=== PATIENT | female | born 1970 | race American Indian/Alaskan Native ===

== ENCOUNTER 2020-11-21 13:22 | Emergency (ER) | payer OTHER ==
[2020-11-21 17:08] VITALS: BP 208/113
--- NOTE | 2020-11-21 17:08 | Emergency Department Report ---
- General Chief Complaint: Upper Respiratory Infection Stated Complaint: COUGH/CHILLS Time Seen by Provider: 11/21/20 17:00 Source: patient Mode of arrival: Ambulatory Limitations: No Limitations - History of Present Illness Initial Comments: Patient is a 50-year-old female presents emergency room with complaints of a productive cough that began a week ago. She states that she has associated brown sputum production. Patient states that she has been having generalized weakness, fatigue, chills. She states that she has back pain upon coughing. She denies any nausea, vomiting, diarrhea, urinary symptoms, chest pain, shortness of breath, abdominal pain. She has not been vaccinated for COVID-19. She states that she got Covid 19 testing yesterday and is awaiting her results. She denies any known sick contacts or recent travel. She states that she is a former smoker and has not smoked in 30 years. Past medical history of hypertension and she states she supposed to be taking amlodipine but has not taken in 1 year. No allergies to medicines. - Related Data Previous Rx's Medication Instructions Recorded Last Taken Type Ferrous Sulfate [Iron 325 MG] 325 mg PO QDAY #30 tablet 01/22/17 Unknown Rx amLODIPine 5 mg PO DAILY #30 tab 01/22/17 Unknown Rx Azithromycin [Zithromax TAB] 250 mg PO QDAY 5 Days #6 tablet 11/21/20 Unknown Rx Benzonatate [Tessalon Perles] 100 mg PO Q8HR PRN #12 capsule 11/21/20 Unknown Rx Prednisone [predniSONE 10 mg 10 mg PO .TAPER #1 tab.ds.pk 11/21/20 Unknown Rx (6-Day Pack, 21 Tabs)] amLODIPine 10 mg PO DAILY #30 tab 11/21/20 Unknown Rx guaiFENesin/DEXTROMETHORPHAN 1 each PO Q6HR PRN #20 capsule 11/21/20 Unknown Rx [Coricidin Hbp Chest Deangelo-Cough] Allergies Allergy/AdvReac Type Severity Reaction Status Date / Time No Known Allergies Allergy Verified 11/21/20 15:58 ED Review of Systems ROS: Stated complaint: COUGH/CHILLS Other details as noted in HPI Comment: All other systems reviewed and negative ED Past Medical Hx - Past Medical History Hx Hypertension: Yes - Surgical History Hx Cholecystectomy: Yes - Social History Smoking Status: Never Smoker Substance Use Type: None - Medications Home Medications: Home Medications Medication Instructions Recorded Confirmed Last Taken Type Ferrous Sulfate [Iron 325 MG] 325 mg PO QDAY #30 tablet 01/22/17 Unknown Rx amLODIPine 5 mg PO DAILY #30 tab 01/22/17 Unknown Rx Azithromycin [Zithromax TAB] 250 mg PO QDAY 5 Days #6 tablet 11/21/20 Unknown Rx Benzonatate [Tessalon Perles] 100 mg PO Q8HR PRN #12 capsule 11/21/20 Unknown Rx Prednisone [predniSONE 10 mg 10 mg PO .TAPER #1 tab.ds.pk 11/21/20 Unknown Rx (6-Day Pack, 21 Tabs)] amLODIPine 10 mg PO DAILY #30 tab 11/21/20 Unknown Rx guaiFENesin/DEXTROMETHORPHAN 1 each PO Q6HR PRN #20 capsule 11/21/20 Unknown Rx [Coricidin Hbp Chest Deangelo-Cough] ED Physical Exam - General Limitations: No Limitations General appearance: alert, in no apparent distress - Head Head exam: Present: atraumatic, normocephalic - Eye Eye exam: Present: normal appearance - ENT ENT exam: Present: mucous membranes moist - Respiratory Respiratory exam: Present: rhonchi (right lower), decreased breath sounds (right lower). Absent: respiratory distress, wheezes, rales, stridor, chest wall tenderness, accessory muscle use, prolonged expiratory - Cardiovascular Cardiovascular Exam: Present: regular rate, normal rhythm, normal heart sounds. Absent: systolic murmur, diastolic murmur, rubs, gallop - Neurological Exam Neurological exam: Present: alert, oriented X3 - Psychiatric Psychiatric exam: Present: normal affect, normal mood - Skin Skin exam: Present: warm, dry, intact ED Course Vital Signs 11/21/20 11/21/20 15:57 17:07 Temperature 97.4 F L Pulse Rate 67 77 Respiratory 20 Rate Blood Pressure 252/128 208/113 [Left] O2 Sat by Pulse 100 100 Oximetry ED Medical Decision Making - Lab Data Vital Signs 11/21/20 11/21/20 15:57 17:07 Temperature 97.4 F L Pulse Rate 67 77 Respiratory 20 Rate Blood Pressure 252/128 208/113 [Left] O2 Sat by Pulse 100 100 Oximetry - Radiology Data Radiology results: report reviewed Ordering Physician: GUILLE JARVIS Date of Service: 11/21/20 Procedure(s): XR chest routine 2V Accession Number(s): [id number] cc: GUILLE JARVIS Fluoro Time In Minutes: XR chest routine 2V INDICATION / CLINICAL INFORMATION: productive cough. COMPARISON: None available. FINDINGS: SUPPORT DEVICES: None. HEART /PULMONARY VASCULATURE: No significant abnormality. LUNGS / PLEURA: No significant pulmonary or pleural abnormality. No pneumothorax. ADDITIONAL FINDINGS: No significant additional findings. IMPRESSION: 1. No acute findings. Signer Name: Katarina Pond MD Signed: 11/21/2020 5:23 PM Workstation Name: [id number] Transcribed By: RISSA Dictated By: KATARINA POND MD Electronically Authenticated By: KATARINA POND MD Signed Date/Time: 11/21/201722 DD/ 22 TD/TT: - Medical Decision Making Patient is a 50-year-old female presents emergency room with complaints of a productive cough that began a week ago. She states that she has associated brown sputum production. Patient states that she has been having generalized we akness, fatigue, chills. She states that she has back pain upon coughing. She denies any nausea, vomiting, diarrhea, urinary symptoms, chest pain, shortness of breath, abdominal pain. She has not been vaccinated for COVID-19. She states that she got Covid 19 testing yesterday and is awaiting her results. She denies any known sick contacts or recent travel. She states that she is a former smoker and has not smoked in 30 years. Past medical history of hypertension and she states she supposed to be taking amlodipine but has not taken in 1 year. No allergies to medicines. Vitals with significantly elevated blood pressure which improved upon repeat without intervention, patient has known history of hypertension and has not taken her medication in 1 year or seen her primary care doctor, patient will be given a refill of her medication, the up-to-date medical literature does not recommend emergently lowering asymptomatic elevated blood pressure. On exam patient has right-sided rhonchi with slightly decreased breath sounds, no respiratory distress, no excessive muscle use, no rales, no stridor. Chest x-ray: 1. No acute findings. Patient will be treated for acute bronchitis. Advised patient Please take medication as prescribed. Increase your fluid intake. Follow-up with a primary care doctor. Please take your blood pressure medication as prescribed. Eat a low-sodium diet. Incorporate 30 to 60 minutes daily exercise. Return to emergency room for any new or worsening symptoms. Advised patient to continue to self quarantine for 10 days from onset of symptoms. Critical care attestation.: If time is entered above; I have spent that time in minutes in the direct care of this critically ill patient, excluding procedure time. ED Disposition Clinical Impression: Acute bronchitis Qualifiers: Bronchitis organism: unspecified organism Qualified Code(s): J20.9 - Acute bronchitis, unspecified Disposition: HOME / SELF CARE / HOMELESS Is pt being admited?: No Does the pt Need Aspirin: No Condition: Stable Instructions: Acute Bronchitis, Adult, Acute Bronchitis (ED) Additional Instructions: Please take medication as prescribed. Increase your fluid intake. Follow-up with a primary care doctor. Please take your blood pressure medication as prescribed. Eat a low-sodium diet. Incorporate 30 to 60 minutes daily exercise. Return to emergency room for any new or worsening symptoms. Prescriptions: amLODIPine 10 mg PO DAILY #30 tab guaiFENesin/DEXTROMETHORPHAN [Coricidin Hbp Chest Deangelo-Cough] 1 each PO Q6HR PRN #20 capsule PRN Reason: cough/congestion Prednisone [predniSONE 10 mg (6-Day Pack, 21 Tabs)] 10 mg PO .TAPER #1 tab.ds.pk Benzonatate [Tessalon Perles] 100 mg PO Q8HR PRN #12 capsule PRN Reason: cough Azithromycin [Zithromax TAB] 250 mg PO QDAY 5 Days #6 tablet Referrals: LUCIE SHELL MD [Primary Care Provider] - 2-3 Days HUY PELLETIER MD [Staff Physician] - 2-3 Days [facility] [Provider Group] - 2-3 Days Time of Disposition: 17:38 Print Language: UPPER SORBIAN
--- NOTE | 2020-11-21 17:27 | XRay Report ---
XR chest routine 2V INDICATION / CLINICAL INFORMATION: productive cough. COMPARISON: None available. FINDINGS: SUPPORT DEVICES: None. HEART /PULMONARY VASCULATURE: No significant abnormality. LUNGS / PLEURA: No significant pulmonary or pleural abnormality. No pneumothorax. ADDITIONAL FINDINGS: No significant additional findings. IMPRESSION: 1. No acute findings. Signer Name: Jigar Pond MD Signed: 11/21/2020 5:23 PM Workstation Name: [id number]
== END 2020-11-21 17:58 | disposition home or self-care (01) ==
LOC: ED 13:22
DX: J20.9 Acute bronchitis, unspecified (principal); I10 Essential (primary) hypertension; Z79.899 Other long term (current) drug therapy; Z90.49 Acquired absence of other specified parts of digestive tract
CPT/HCPCS: 71046; 99283

== ENCOUNTER 2021-04-11 11:40 | Emergency (ER) | payer SELFPAY ==
[2021-04-11] MEDS ORDERED: diphenhydrAMINE 50 MG/ML VIAL IV ONE (13:36)
[2021-04-11] MEDS ORDERED: FAMOTIDINE 20 MG/2 ML INJ IV ONE (13:36)
[2021-04-11] MEDS ORDERED: METOCLOPRAMIDE 10 MG/2 ML INJ IV ONE (13:36)
[2021-04-11] MEDS ORDERED: DICYCLOMINE 20 MG TAB PO ONE (13:36)
[2021-04-11] MEDS ORDERED: SODIUM CHLORIDE 0.9% 1000 ML 1,000 ML IV ONE (13:36)
[2021-04-11 14:05] LABS: Basophils % (Auto) 0.4 % (0.0-1.8); Eosinophils # (Auto) 0.1 K/mm3 (0.0-0.4); Eosinophils % (Auto) 1.9 % (0.0-4.3); Hematocrit 44.5 % (30.3-42.9); Hemoglobin 14.4 gm/dl (10.1-14.3); Lymphocytes # (Auto) 2.6 K/mm3 (1.2-5.4); Lymphocytes % (Auto) 39.7 % (13.4-35.0); Mean Corpuscular HGB Conc 32 % (30-34); Mean Corpuscular Volume 86 fl (79-97); Monocytes # (Auto) 0.6 K/mm3 (0.0-0.8); Monocytes % (Auto) 8.8 % (0.0-7.3); Platelet Count 234 K/mm3 (140-440); Red Blood Count 5.19 M/mm3 (3.65-5.03); Red Cell Distribution Width 13.9 % (13.2-15.2)
[2021-04-11 14:23] LABS: Alanine Aminotransferase 18 units/L (7-56); Albumin 4.2 g/dL (3.9-5); BUN/Creatinine Ratio 19; Blood Urea Nitrogen 15 mg/dL (7-17); Calcium 9.6 mg/dL (8.4-10.2); Hemolysis Index 6
[2021-04-11 16:04] LABS: Bilirubin,Urine NEG (Negative); Blood,Urine NEG (Negative); Color,Urine Yellow (Yellow); Mucus,Urine 3+ /HPF; Urobilinogen,Urine < 2.0 mg/dL (<2.0)
--- NOTE | 2021-04-11 16:04 | Emergency Department Report ---
ED Abdominal Pain HPI - General Chief Complaint: Abdominal Pain Stated Complaint: ABD PAIN Time Seen by Provider: 04/11/21 13:13 Source: patient Mode of arrival: Ambulatory Limitations: No Limitations - History of Present Illness Initial Comments: This is a 51-year-old female nontoxic, well nourished in appearance, no acute signs of distress presents to the ED with c/o of nausea and vomiting and abdominal pain several days. Patient describes vomiting as food content and yellow gastric acid. Patient describes abdominal pain as cramping and aching with level of 8/10 to RUQ with radiation to right flank. Patient has history of cholecystectomy. Patient denies chest pain, short of breath, fever, hemoptysis, blood in stool, chills, headache, stiff neck, numbness or tingling. Patient denies any diarrhea or constipation. Denies any blood in stool. Patient denies any recent travels. Patient denies any drug allergies. Patient denies any al cohol or illegal drug consumption. MD Complaint: abdominal pain -: days(s) Location: RUQ Radiation: R flank Migration to: no migration Severity: mild Severity scale (0 -10): 8 Quality: cramping, aching Consistency: constant Improves With: nothing Worsens With: nothing Associated Symptoms: nausea, vomiting. denies: diarrhea, fever, chills, constipation, dysuria, hematemesis, hematochezia, melena, hematuria, anorexia, syncope - Related Data Previous Rx's Medication Instructions Recorded Last Taken Type Ferrous Sulfate [Iron 325 MG] 325 mg PO QDAY #30 tablet 01/22/17 Unknown Rx amLODIPine 5 mg PO DAILY #30 tab 01/22/17 Unknown Rx Azithromycin [Zithromax TAB] 250 mg PO QDAY 5 Days #6 tablet 11/21/20 Unknown Rx Benzonatate [Tessalon Perles] 100 mg PO Q8HR PRN #12 capsule 11/21/20 Unknown Rx Prednisone [predniSONE 10 mg 10 mg PO .TAPER #1 tab.ds.pk 11/21/20 Unknown Rx (6-Day Pack, 21 Tabs)] amLODIPine 10 mg PO DAILY #30 tab 11/21/20 Unknown Rx guaiFENesin/DEXTROMETHORPHAN 1 each PO Q6HR PRN #20 capsule 11/21/20 Unknown Rx [Coricidin Hbp Chest Deangelo-Cough] Ciprofloxacin HCl 500 mg PO Q12H #14 tab 04/11/21 Unknown Rx Ondansetron [Zofran Odt] 4 mg PO Q8HR PRN #12 tab.rapdis 04/11/21 Unknown Rx metroNIDAZOLE [Flagyl] 500 mg PO Q12HR #14 tab 04/11/21 Unknown Rx Allergies Allergy/AdvReac Type Severity Reaction Status Date / Time No Known Allergies Allergy Verified 11/21/20 15:58 ED Review of Systems ROS: Stated complaint: ABD PAIN Other details as noted in HPI Comment: All other systems reviewed and negative Constitutional: denies: chills, fever Eyes: denies: eye pain, eye discharge, vision change ENT: denies: ear pain, throat pain Respiratory: denies: cough, shortness of breath, wheezing Cardiovascular: denies: chest pain, palpitations Endocrine: no symptoms reported Gastrointestinal: abdominal pain, nausea, vomiting. denies: diarrhea, constipation, hematemesis, melena, hematochezia Genitourinary: denies: urgency, dysuria, discharge Musculoskeletal: denies: back pain, joint swelling, arthralgia Skin: denies: rash, lesions Neurological: denies: headache, weakness, paresthesias Psychiatric: denies: anxiety, depression Hematological/Lymphatic: denies: easy bleeding, easy bruising ED Past Medical Hx - Past Medical History Previous Medical History?: Yes Hx Hypertension: Yes - Surgical History Hx Cholecystectomy: Yes - Social History Smoking Status: Never Smoker Substance Use Type: None - Medications Home Medications: Home Medications Medication Instructions Recorded Confirmed Last Taken Type Ferrous Sulfate [Iron 325 MG] 325 mg PO QDAY #30 tablet 01/22/17 Unknown Rx amLODIPine 5 mg PO DAILY #30 tab 01/22/17 Unknown Rx Azithromycin [Zithromax TAB] 250 mg PO QDAY 5 Days #6 tablet 11/21/20 Unknown Rx Benzonatate [Tessalon Perles] 100 mg PO Q8HR PRN #12 capsule 11/21/20 Unknown Rx Prednisone [predniSONE 10 mg 10 mg PO .TAPER #1 tab.ds.pk 11/21/20 Unknown Rx (6-Day Pack, 21 Tabs)] amLODIPine 10 mg PO DAILY #30 tab 11/21/20 Unknown Rx guaiFENesin/DEXTROMETHORPHAN 1 each PO Q6HR PRN #20 capsule 11/21/20 Unknown Rx [Coricidin Hbp Chest Deangelo-Cough] Ciprofloxacin HCl 500 mg PO Q12H #14 tab 04/11/21 Unknown Rx Ondansetron [Zofran Odt] 4 mg PO Q8HR PRN #12 tab.rapdis 04/11/21 Unknown Rx metroNIDAZOLE [Flagyl] 500 mg PO Q12HR #14 tab 04/11/21 Unknown Rx ED Physical Exam - General Limitations: No Limitations General appearance: alert, in no apparent distress - Head Head exam: Present: atraumatic, normocephalic - Eye Eye exam: Present: normal appearance - Neck Neck exam: Present: normal inspection, full ROM. Absent: lymphadenopathy - Respiratory Respiratory exam: Present: normal lung sounds bilaterally. Absent: respiratory distress, wheezes, rales, rhonchi, stridor, chest wall tenderness, accessory muscle use, decreased breath sounds, prolonged expiratory - Cardiovascular Cardiovascular Exam: Present: regular rate, normal rhythm, normal heart sounds. Absent: bradycardia, tachycardia, irregular rhythm, systolic murmur, diastolic murmur, rubs, gallop - GI/Abdominal GI/Abdominal exam: Present: soft, tenderness (RUQ), normal bowel sounds. Absent: distended, guarding, rebound, rigid, diminished bowel sounds - Extremities Exam Extremities exam: Present: full ROM - Back Exam Back exam: Present: normal inspection, full ROM. Absent: tenderness, CVA tender ness (R), CVA tenderness (L), muscle spasm, paraspinal tenderness, vertebral tenderness, rash noted - Neurological Exam Neurological exam: Present: alert, oriented X3, normal gait - Psychiatric Psychiatric exam: Present: normal affect, normal mood - Skin Skin exam: Present: warm, dry, intact, normal color. Absent: rash ED Course Vital Signs 04/11/21 11:45 Temperature 98 F Pulse Rate 84 Respiratory 16 Rate Blood Pressure 143/89 [Right] O2 Sat by Pulse 98 Oximetry - Reevaluation(s) Reevaluation #1: 04/11/21 16:03 Patient is speaking in full sentences with no signs of distress noted. - Consultations Consultation #1: 04/11/21 16:33 Patient has been consulted with Patricia Del Valle about patient history, physical exam, and labs/imaging results and agrees to the ED plan of care and discharged follow-up with treatment. ED Medical Decision Making - Lab Data Result diagrams: 04/11/21 13:28 04/11/21 13:28 Lab Results 04/11/21 04/11/21 04/11/21 Range/Units 13:28 13:28 Unknown WBC 6.6 (4.5-11.0) K/mm3 RBC 5.19 H (3.65-5.03) M/mm3 Hgb 14.4 H (10.1-14.3) gm/dl Hct 44.5 H (30.3-42.9) % MCV 86 (79-97) fl MCH 28 (28-32) pg MCHC 32 (30-34) % RDW 13.9 (13.2-15.2) % Plt Count 234 (140-440) K/mm3 Lymph % (Auto) 39.7 H (13.4-35.0) % [place] % (Auto) 8.8 H (0.0-7.3) % Eos % (Auto) 1.9 (0.0-4.3) % Baso % (Auto) 0.4 (0.0-1.8) % Lymph # (Auto) 2.6 (1.2-5.4) K/mm3 [place] # (Auto) 0.6 (0.0-0.8) K/mm3 Eos # (Auto) 0.1 (0.0-0.4) K/mm3 Baso # (Auto) 0.0 (0.0-0.1) K/mm3 Seg Neutrophils % 49.2 (40.0-70.0) % Seg Neutrophils # 3.3 (1.8-7.7) K/mm3 Sodium 140 (137-145) mmol/L Potassium 3.9 (3.6-5.0) mmol/L Chloride 103.0 (98-107) mmol/L Carbon Dioxide 28 (22-30) mmol/L Anion Gap 13 mmol/L BUN 15 (7-17) mg/dL Creatinine 0.8 (0.6-1.2) mg/dL Estimated GFR > 60 ml/min BUN/Creatinine Ratio 19 % Glucose 82 (65-100) mg/dL Calcium 9.6 (8.4-10.2) mg/dL Total Bilirubin 0.20 (0.1-1.2) mg/dL AST 16 (5-40) units/L ALT 18 (7-56) units/L Alkaline Phosphatase 72 (35-129) units/L Total Protein 7.4 (6.3-8.2) g/dL Albumin 4.2 (3.9-5) g/dL Albumin/Globulin Ratio 1.3 % Lipase 139 H (13-60) units/L Urine Color Yellow (Yellow) Urine Turbidity Hazy (Clear) Urine pH 5.0 (5.0-7.0) Ur Specific [place] 1.024 (1.003-1.030) Urine Protein 30 mg/dl (Negative) mg/dL Urine Glucose (UA) Neg (Negative) mg/dL Urine Ketones Neg (Negative) mg/dL Urine Blood Neg (Negative) Urine Nitrite Neg (Negative) Urine Bilirubin Neg (Negative) Urine Urobilinogen < 2.0 (<2.0) mg/dL Ur Leukocyte Esterase Neg (Negative) Urine WBC (Auto) 2.0 (0.0-6.0) /HPF Urine RBC (Auto) 1.0 (0.0-6.0) /HPF U Epithel Cells (Auto) 8.0 (0-13.0) /HPF Urine Mucus 3+ /HPF - Radiology Data CT abdomen pelvis w con INDICATION / CLINICAL INFORMATION: abd pain 100 ML OMNI 300 . TECHNIQUE: Axial CT images were obtained through the abdomen and pelvis after 100 cc of Omnipaque [address] scans at this location are performed using CT dose reduction for ALARA by means of automated exposure control. COMPARISON: None available. FINDINGS: LOWER CHEST: 7 mm nodule along the medial aspect of the right middle lobe may be calcified. No acute airspace disease in the lung bases. LIVER: No significant abnormality GALLBLADDER/BILIARY TREE: Cholecystectomy. PANCREAS: There is mild peripancreatic inflammatory stranding involving the pancreatic head. No peripancreatic collection. SPLEEN: No significant abnormality ADRENALS: No significant abnormality KIDNEYS / URETER: No significant abnormality URINARY BLADDER: Bladder is partially decompressed, though grossly unremarkable. REPRODUCTIVE ORGANS: Fibroid uterus. No suspicious adnexal mass. STOMACH / BOWEL: Small bowel is normal in caliber. The colon is unremarkable. No evidence of appendicitis. LYMPH NODES: No significant adenopathy. VASCULATURE: No significant abnormality. OTHER: No free air, free fluid, or focal fluid collection is identified. SKELETAL SYSTEM: Degenerative changes of the spine. No acute osseous findings. IMPRESSION: 1. Mild inflammatory stranding about the pancreatic head, suspicious for acute inte rstitial edematous pancreatitis. No peripancreatic collection. 2. No other acute findings of the abdomen or pelvis. 3. 7 mm pulmonary nodule in the right middle lobe. This is possibly calcified. However, as a conservative measure, recommend follow-up noncontrast CT of the chest in 6-12 months. - Medical Decision Making This is a 51-year-old female that presents with acute pericarditis n. Patient is stable and was examined by me. Negative signs of symptoms of appendicitis. Patient received Flagyl and levofloxacin IV and will be discharged with Cipro and Flagyl. Labs obtained. UA obtained. CT of abdomen obtained and dictated by the radiologist. Patient is notified of the report with no questions noted by the patient. Vital signs are stable prior to discharge. Patient received medical treatment in the ED which patient stated symptoms has resovled and subsided. Was instructed note to operate any machinery due to possible drowsiness and stated someone will drive the patient home. A by mouth challenge has been obtained and patient tolerated well with no nausea vomiting. 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 At time of discharge, the patient does not seem toxic or ill in appearance. No acute signs of distress noted. Patient agrees to discharge treatment plan of care. No further questions noted by the patient. Critical care attestation.: If time is entered above; I have spent that time in minutes in the direct care of this critically ill patient, excluding procedure time. ED Disposition Clinical Impression: Acute pancreatitis Qualifiers: Pancreatitis type: unspecified pancreatitis type Acute pancreatitis complication: unspecified Qualified Code(s): K85.90 - Acute pancreatitis without necrosis or infection, unspecified Disposition: 01 HOME / SELF CARE / HOMELESS Is pt being admited?: No Does the pt Need Aspirin: No Condition: Stable Instructions: Abdominal Pain (ED), Acute Pancreatitis, [id number] Additional Instructions: Follow-up with a primary care doctor in 3-5 days or if symptoms worsen and continue return to emergency room as soon as possible. Prescriptions: Ciprofloxacin HCl 500 mg PO Q12H #14 tab metroNIDAZOLE [Flagyl] 500 mg PO Q12HR #14 tab Ondansetron [Zofran Odt] 4 mg PO Q8HR PRN #12 tab.rapdis PRN Reason: Nausea Referrals: PRIMARY CAREMD [Primary Care Provider] - 3-5 Days HUY PELLETIER MD [Staff Physician] - 3-5 Days [facility] [Provider Group] - 3-5 Days Forms: Work/School Release Form(ED) Time of Disposition: 16:36
--- NOTE | 2021-04-11 16:30 | Cat Scan Report ---
CT abdomen pelvis w con INDICATION / CLINICAL INFORMATION: abd pain 100 ML OMNI 300 . TECHNIQUE: Axial CT images were obtained through the abdomen and pelvis after 100 cc of Omnipaque [address] scans at this location are performed using CT dose reduction for ALARA by means of automated exposure control. COMPARISON: None available. FINDINGS: LOWER CHEST: 7 mm nodule along the medial aspect of the right middle lobe may be calcified. No acute airspace disease in the lung bases. LIVER: No significant abnormality GALLBLADDER/BILIARY TREE: Cholecystectomy. PANCREAS: There is mild peripancreatic inflammatory stranding involving the pancreatic head. No perip ancreatic collection. SPLEEN: No significant abnormality ADRENALS: No significant abnormality KIDNEYS / URETER: No significant abnormality URINARY BLADDER: Bladder is partially decompressed, though grossly unremarkable. REPRODUCTIVE ORGANS: Fibroid uterus. No suspicious adnexal mass. STOMACH / BOWEL: Small bowel is normal in caliber. The colon is unremarkable. No evidence of appendic itis. LYMPH NODES: No significant adenopathy. VASCULATURE: No significant abnormality. OTHER: No free air, free fluid, or focal fluid collection is identified. SKELETAL SYSTEM: Degenerative changes of the spine. No acute osseous findings. IMPRESSION: 1. Mild inflammatory stranding about the pancreatic head, suspicious for acute interstitial edematous pancreatitis. No peripancreatic collection. 2. No other acute findings of the abdomen or pelvis. 3. 7 mm pulmonary nodule in the right middle lobe. This is possibly calcified. However, as a conserva tive measure, recommend follow-up noncontrast CT of the chest in 6-12 months. Signer Name: Jigar Pond MD Signed: 04/11/2021 4:26 PM Workstation Name: [id number]
[2021-04-11] MEDS ORDERED: metroNIDAZOLE/NS 500 MG/100 ML 500 MG/100 ML BAG IV ONE (16:33)
[2021-04-11 23:52] VITALS: BP 130/72
== END 2021-04-11 23:50 | disposition home or self-care (01) ==
LOC: ED 11:40
DX: K85.90 Acute pancreatitis without necrosis or infection, unspecified (principal); I10 Essential (primary) hypertension
CPT/HCPCS: 36415; 74177; 80053; 81001; 83690; 85025; 96361; 96365; 96368; 96375; 99284; J1200; J1956; J2765; J3490; J7030; J7517; Q9967; Q0162